=== PATIENT | female | born 1965 | race Caucasian/White ===

== ENCOUNTER 2025-03-11 06:29 | Emergency (ER) | payer BC, SELFPAY ==
[2025-03-11 06:37] VITALS: BP 132/80
--- NOTE | 2025-03-11 07:00 | ED.GENMED ---
History of Present Illness
General
Chief Complaint: Abdominal Pain
Time Seen by Provider: 03/11/25 06:47
History of Present Illness
History of Present Illness:
Patient is a 59-year-old female with past medical history of right-sided renal cell carcinoma status post adrenalectomy and nephrectomy, here today for evaluation of sudden onset of what she reports is right lower quadrant abdominal pain that began
yesterday afternoon at approximately 4:30 PM. Pain has been persistent but waxes and intensity and is described as moderate to severe. She has noted associated nausea and a small amount of watery diarrhea. No black or blood noted. No vomiting.
No fevers noted. She reports slight shortness of breath when the pain becomes severe but denies chest pain. No urinary symptoms. No other acute complaints. She has never had similar pain previously.
Review of Systems
Review of Systems
All Other Systems: ROS reviewed and negative except as documented in HPI and ROS
Phy Exam
Physical Exam
Physical Exam:
GENERAL: Alert , in no apparent distress
EYE: pupils equal and reactive
NECK: Supple
ENT: o/p clr, mmm.
CARDIAC: Regular rate and rhythm .
LUNGS: Clear breath sounds bilaterally, no acute respiratory distress, no wheezes/rales/rhonchi
ABDOMEN: Soft, moderate right upper quadrant abdominal tenderness to palpation, no rebound, no guarding
NEUROLOGICAL: Alert and oriented, no focal neuro deficits
SKIN: Warm and dry, skin intact.
MUSCULOSKELETAL: No edema, well perfused.
PSYCH: Normal and appropriate interaction.
Course
Orders/Labs/Results
Orders:
Orders
03/11/25 Breakfast
NPO
Allow oral meds: No
Allow clear liquids: No
03/11/25 06:58
0.9% Sodium Chloride 1000 ml [Nss] 1,000 ml IV BOLUS
Ondansetron Injectable [Zofran] 4 mg IV NOW STA
US Abdomen Complete/Upper Urgent
Reason For Exam: RUQ, eval for cholecystitis/biliary colic
03/11/25 07:00
Electrocardiogram (*1) Urgent
Reason for Study: Shortness of Breath
EKG- Treatment ONCE
03/11/25 07:15
Comprehensive Metabolic Panel Urgent
Lipase Urgent
Troponin I Urgent
03/11/25 07:17
Complete Blood Count/With Diff Urgent
Urinalysis Reflex To Culture Urgent
Date Specimen was Collected: 03/11/25
Time Specimen was Collected: 07:11
Urine Microscopic Reflex Cult Urgent
03/11/25 08:57
CT Abd/pelvis W Iv Cont Urgent
Comment:
Reason For Exam: right sided abd pain
03/11/25 09:01
Morphine Sulfate 2 mg IV NOW STA
Abnormal Lab Results
03/11/25 03/11/25
07:15 07:17
WBC 18.5 H 10^3/uL
(4.8-10.8)
MCH 32.7 H pg
(27.0-31.0)
Abs Immat Gran (auto) 0.1 H 10^3/uL
(0-0.05)
Absolute Neuts (auto) 15.6 H 10^3/uL
(1.4-6.5)
Absolute Monos (auto) 1.3 H 10^3/uL
(0.1-0.6)
Immature Gran % 0.6 H %
(0-0.5)
Neutrophils % 84.6 H %
(42.2-75.2)
Lymphocytes % 7.4 L %
(20.5-51.1)
Glucose 119 H mg/dl
(70-99)
Urine Albumin (Reflex) 1+ A
(Neg - Trace)
03/11/25 07:17
03/11/25 07:15
Vital Signs
Initial and Last Documented VS:
Initial Vital Signs
Temp Pulse Resp BP Pulse Ox
98.7 F 95 16 132/80 97
03/11/25 06:37 03/11/25 06:37 03/11/25 06:37 03/11/25 06:37 03/11/25 06:37
Last Documented Vital Signs
Temp Pulse Resp BP Pulse Ox
98.7 F 79 16 130/63 97
03/11/25 06:37 03/11/25 11:21 03/11/25 11:21 03/11/25 11:21 03/11/25 11:21
MDM/Problems Addressed
Differential Diagnosis Includes:
Patient is a 59-year-old female with past medical history of right-sided renal cell carcinoma status post adrenalectomy and nephrectomy, here today for evaluation of sudden onset of what she reports is right lower quadrant abdominal pain. Overall,
patient appears uncomfortable. Vitals grossly within normal limits. Physical examination described above. On examination the patient has moderate tenderness to palpation along the right upper quadrant. There is minimal tenderness along the right
lower quadrant. I suspect her pain is likely secondary to an acute gallbladder pathology possibly cholecystitis versus biliary colic. NPO. Will provide IV fluids. Patient declines wanting any analgesia at this time. She is requesting an
antiemetic and therefore will provide Zofran. Will also obtain urinalysis, screening labs, and right upper quadrant ultrasound. She does report slight shortness of breath however this is likely secondary to the increase in pain however we will
obtain an EKG and troponin. Patient without chest pain.
03/11/2025 09:01: Ultrasound grossly unremarkable. Given persistent pain we will obtain a CT scan of the abdomen and pelvis with IV contrast. Patient also requesting pain medication at this time. Will provide morphine. NPO.
03/11/2025 11:30: Labs show leukocytosis to 18.[address] scan reveals moderate mid ascending colon colitis versus colonic mass. No perforation or abscess formation. Case was discussed with GI attending, Dr. Jay, who recommends stool
studies, antibiotics, and outpatient GI follow-up. An attempt was made at stool studies but patient not successful. Patient offered to stay in the emergency department to provide stool studies but she declined this and is requesting to go home.
Will recommend obtaining stool studies as an outpatient with GI. Will initiate Augmentin and recommend supportive measures and close follow-up with GI for outpatient colonoscopy and further evaluation. Patient voiced understanding. Return
precautions given. All questions answered. Stable for discharge.
*Pulse Oximetry
SaO2: 97
Oxygen Mode of Delivery: Room air
Patient hypoxic: no
*Critical Care Note
Total Time (30-74mins, 75-104mins- exclusive of procedures): Not Applicable
ED Attending Note
-
Portions of this chart may have been created with voice recognition software.� Occasional wrong word or��sound alike� substitutions may have occurred due to the inherent limitations of voice recognition software.
Discharge Plan
Departure
Patient Disposition: Home (Routine Discharge)
Date of Disposition: 03/11/25
Time of Disposition: 11:23
Patient with high blood pressure during this ER visit?: No
Condition: Fair
Discharge Problem:
Right sided abdominal pain, Colitis, Colon wall thickening
Instructions: Abdominal Pain
Prescriptions:
New
amoxicillin-pot clavulanate 875-125 mg tablet
1 tab PO Q8H 10 Days Qty: 30 0RF
Referrals:
Dagoberto Scales DO [Family Provider, Family Practice] - Follow up in 2-3 days
Marium Jay DO [Active, Gastroenterology] - Follow up in 10 days
Activity Restrictions/Additional Instructions:
You were seen today for evaluation of abdominal pain.
Your blood work reveals elevation in your white blood cell count which can be a marker for infection/inflammation.
We performed a CAT scan of your abdomen and pelvis which reveals the following:
Moderate mid ascending colon colitis versus colonic mass. This would better be evaluated by direct visualization or barium enema. No evidence of perforation or abscess formation.
Abdomen and pelvis: The liver, spleen, gallbladder and pancreas are unremarkable. The left adrenal gland and kidney are unremarkable. The right adrenal gland is not visualized. The right kidney is absent.. The abdominal aorta is normal caliber. No
significant lymphadenopathy is noted. Bowel loops are normal caliber. The terminal ileum and appendix are within normal limits. There is mild diverticulosis mostly in the sigmoid colon. Oral contrast has reached the left colon. There is moderate
circumferential wall thickening of the mid ascending colon. This extends a length of approximately 6 cm. There is mild pericolonic stranding. This may be colitis. A colonic mass cannot be excluded.
We discussed your case with gastroenterology who recommends antibiotics. Take the antibiotics as directed. Drink plenty of fluids.
Follow-up with your GI specialist as an outpatient within the next 7 to 10 days for close reevaluation. We recommend obtaining an outpatient colonoscopy.
Return for any new, worsening, or concerning symptoms.
Interventions
Interventions:
*Risk Screen - Suicide Last Done: 03/11/25 06:37
*General Assessment Last Done: 03/11/25 07:22
*Neglect/Abuse Screening Last Done: 03/11/25 06:37
*ED- Fall Risk Assessment Last Done: 03/11/25 06:37
*ED COVID-19 Vaccine History Last Done: 03/11/25 06:37
*Nursing Disposition Last Done: 03/11/25 11:34
NW-Zsloff-Mmulkcdfqi Assessment Last Done: 03/11/25 07:22
Discharge Date and Time
Discharge Date/Time: 03/11/25 11:37
Print Language: GHANAIAN
[2025-03-11] MEDS: ZOFRAN 4 MG IV (07:18)
[2025-03-11] MEDS: NSS 1000 IV (07:18)
[2025-03-11 07:28] LABS: Urine Character Clear (Clear)
[2025-03-11 07:30] LABS: Hematocrit 43.0 % (37.0-47.0); Hemoglobin 15.0 g/dL (12.0-16.0); Mean Corp Hgb Conc. 34.9 g/dL (33.0-37.0); Mean Corpuscular Volume 93.7 fL (81.0-99.0); Nucleated Red Blood Cells % 0 %; Platelet Count 202 10^3/uL (130-400); Red Cell Dist. Width 12.9 % (11.5-14.5)
[2025-03-11 08:03] LABS: ALT (SGPT) 16 U/L (0-35); AST (SGOT) 21 U/L (14-36); Albumin 4.2 g/dl (3.5-5.0); Alkaline Phosphatase 59 U/L (38-126); Blood Urea Nitrogen 14 mg/dl (7-17); Calcium 9.2 mg/dl (8.4-10.2); Carbon Dioxide 24 mmol/L (22-30); Chloride 107 mmol/L (98-107); Glucose 119 mg/dl (70-99); Lipase 51 U/L (23-300); Potassium 4.2 mmol/L (3.5-5.1); Sodium 138 mmol/L (135-145); Total Protein 6.8 g/dl (6.3-8.2); eGFR > 60.00
[2025-03-11 08:06] LABS: Urine Squamous Cell >30 /LPF (Few)
[2025-03-11 08:07] LABS: Urine Red Blood Cell 0-2 /HPF (0-2); Urine White Cell 0-2 /HPF (0-5)
[2025-03-11 08:11] LABS: Troponin I < 0.012 ng/ml
[2025-03-11 08:38] VITALS: BP 129/78
[2025-03-11] MEDS: MORPHINE SULFATE 2 MG IV (09:06)
[2025-03-11 11:21] VITALS: BP 130/63
== END 2025-03-11 11:37 | disposition home or self-care (01) ==
LOC: EMR 06:29
PROVIDERS: Physician Assistant; EMERGENCY PHYSICIAN Emergency Medicine; FAMILY PHYSICIAN Family Medicine
DX: R10.9 Unspecified abdominal pain (principal); K52.9 Noninfective gastroenteritis and colitis, unspecified; Z85.528 Personal history of other malignant neoplasm of kidney; Z90.5 Acquired absence of kidney
CPT/HCPCS: 99284; 96374; 96375; 96361; 74177; 76700; 80053; 81003; 81015; 83690; 84484; 85025; 93005; Q9967